=== PATIENT | female | born 1960 | race Caucasian/White ===

== ENCOUNTER 2020-09-19 16:06 | Emergency (ER) | payer BC, OTHER ==
[2020-09-19] MEDS ORDERED: HYDROCODON-ACE1 EAC4 PO (18:22)
== END 2020-09-19 19:00 | disposition home or self-care (01) ==
LOC: ER1 16:06
DX: M25.561 Pain in right knee (principal); I10 Essential (primary) hypertension; E78.5 Hyperlipidemia, unspecified
CPT/HCPCS: 73564; 85379; 86757; 99283